=== PATIENT | male | born 1955 | race Caucasian/White ===

== ENCOUNTER → 2021-04-26 10:37 | Outpatient (BNVA) | payer MEDICARE, SELFPAY | PROVIDERS: PCP Family Medicine; Visit Provider Internal Medicine Pulmonary Disease | DX: J44.9 Chronic obstructive pulmonary disease, unspecified (principal); R91.8 Other nonspecific abnormal finding of lung field; Z87.891 Personal history of nicotine dependence | CPT/HCPCS: 99204 ==

== ENCOUNTER 2021-05-28 12:40 | Outpatient (CLI) | payer MEDICARE, SELFPAY ==
--- NOTE | 2021-05-28 13:00 | CT_ITS ---
WS: [id number] CT CHEST WITHOUT INTRAVENOUS CONTRAST HISTORY: 12 month f/u lung nodules TECHNIQUE: Contiguous 5 mm axial imaging performed on the thorax. Coronal and sagittal reformats are submitted. All CT scans at [facility] use at least one of these dose optimization techniques: automated exposure control; mA and/or kV adjustment per patient size (includes targeted exams where dose is matched to clinical indication); or iterative reconstruction. CONTRAST: None DLP: 922.56 mGy.cm COMPARISON: None available. Lungs and central airway: 5 mm slightly irregular nodule LEFT upper lobe. Additional 3 mm nodule RIGH T lower lobe, image 39 series 3. There are several adjacent small noncalcified nodules measuring 4 to 5 mm RIGHT middle lobe. Chronic emphysema. Pleura: Normal. No pleural effusion. Heart and pericardium: Normal size heart with no pericardial effusion. Mediastinum and ailyn: No mediastinum or hilar adenopathy. Vessels: Mild atherosclerosis aorta. Moderate coronary artery atherosclerotic plaque, greatest in the LEFT anterior descending artery. Pulmonary artery size is normal. Chest wall and lower neck: No soft tissue masses. Upper abdomen: Hepatic steatosis. Increased density layering within the dependent gallbladder. Low-at tenuation well-circumscribed mass upper pole RIGHT kidney measures 5.0 x 4.4 cm. No adrenal mass. Osseous structures: Healed rib fracture in the posterior LEFT thorax and lateral RIGHT thorax. CT/CT chest wo con [id number] IMPRESSION: 1. Bilateral subcentimeter pulmonary nodules as described above. No prior stud ies for comparison to evaluate for interval change. Recommend [address] follo w-up for continued documentation of stability. 2. Moderate coronary artery atherosclerotic plaque. 3. RIGHT renal cyst. 4. Cholelithiasis without acute cholecystitis.
== END 2021-05-28 12:41 | disposition home or self-care (01) ==
PROVIDERS: PCP Family Medicine; Visit Provider Internal Medicine Pulmonary Disease
DX: R91.8 Other nonspecific abnormal finding of lung field (principal); I25.10 Atherosclerotic heart disease of native coronary artery without angina pectoris; N28.1 Cyst of kidney, acquired; K80.20 Calculus of gallbladder without cholecystitis without obstruction
CPT/HCPCS: 71250

== ENCOUNTER 2021-07-25 12:41 | Outpatient (CLI) | payer MEDICARE, SELFPAY ==
--- NOTE | 2021-07-25 13:00 | XR_ITS ---
WS: [id number] KUB, AP view, 07/25/2021 Clinical Data: KIDNEY STONE Comparison: None. Findings: No abnormal intraabdominal masses are seen. There is no dilatated small bowel or evidence of obstruct ion. There is a 1.1 cm calcification overlying the midportion of the left kidney. XR/XR KUB [id number] Impression: Left renal calculus.
== END 2021-07-25 12:42 | disposition home or self-care (01) ==
PROVIDERS: PCP Family Medicine; Visit Provider Urology
DX: N20.0 Calculus of kidney (principal)
CPT/HCPCS: 74018; 81003; 99203

== ENCOUNTER 2021-08-28 13:27 | Outpatient (CLI) | payer MEDICARE, SELFPAY ==
--- NOTE | 2021-08-28 14:09 | PFTS_ITS ---
Date of Study:08/28/21 Date of Dictation: MECHANICS: Forced vital capacity (FVC) is normal. Forced expiratory volume in one second (FEV1) is normal. FEV1/FVC is reduced. FLOW VOLUME LOOP: Hesitation throughout the forced expiratory maneuver based on the graph I was given. This could have affected the FEV1 FVC ratio. LUNG VOLUMES: Total lung capacity (TLC) is normal. Residual volume (RV) is normal. DIFFUSING CAPACITY FOR CARBON MONOXIDE: Mild reduced. INTERPRETATION: The prebronchodilator spirometry is consistent with mild airflow obstruction. However, depending on the flow-volume loop, the FEV1 measurement could have been erroneously reduced. Lung volumes are normal. Gas exchange (DLCO) is mildly reduced. MTDD
== END 2021-08-28 13:28 | disposition home or self-care (01) ==
LOC: RT 13:27
PROVIDERS: PCP Family Medicine; Visit Provider Internal Medicine Pulmonary Disease
DX: J44.9 Chronic obstructive pulmonary disease, unspecified (principal)
CPT/HCPCS: 94010; 94618; 94726; 94729

== ENCOUNTER → 2022-04-17 12:19 | Outpatient (BNVA) | payer MEDICARE, SELFPAY | PROVIDERS: PCP Family Medicine; Visit Provider Internal Medicine Cardiovascular Disease | DX: R91.8 Other nonspecific abnormal finding of lung field (principal); Z87.891 Personal history of nicotine dependence; I48.91 Unspecified atrial fibrillation; Z98.890 Other specified postprocedural states; Z79.82 Long term (current) use of aspirin | CPT/HCPCS: 99213 ==

== ENCOUNTER → 2022-09-25 09:10 | Outpatient (BNVA) | payer MEDICARE, SELFPAY | PROVIDERS: PCP Family Medicine; Visit Provider Nurse Practitioner Family | DX: Z12.83 Encounter for screening for malignant neoplasm of skin (principal); Z85.828 Personal history of other malignant neoplasm of skin; L82.0 Inflamed seborrheic keratosis; D18.01 Hemangioma of skin and subcutaneous tissue; L57.0 Actinic keratosis; L57.8 Other skin changes due to chronic exposure to nonionizing radiation; L85.3 Xerosis cutis | CPT/HCPCS: 17000; 17003; 17110; 99203 ==

== ENCOUNTER 2023-01-10 07:09 | Outpatient (CLI) | payer MEDICARE, SELFPAY ==
--- NOTE | 2023-01-10 07:30 | CT_ITS ---
WS: [id number] CT CHEST TECHNIQUE: Contrast enhanced CT of the chest with coronal and sagittal reformatted images. CLINICAL INFORMATION: R91.8 - Other nonspecific abnormal finding of lung field COMPARISON: CT chest 05/28/2021 DLP: 626.[address] scans at [facility] use at least one of these dose optimization techniques: automated e xposure control; mA and/or kV adjustment per patient size (includes targeted exams where dose is matc hed to clinical indication); or iterative reconstruction. FINDINGS: Previously described noncalcified subcentimeter pulmonary nodules are stable in appearance compared to previous. Tiny noncalcified nodules LEFT upper lobe laterally, RIGHT lower lobe laterally , and 2 small nodules in the RIGHT middle lobe. A few calcified granulomas. No acute pulmonary infilt rates. Advanced chronic emphysematous changes. Normal caliber thoracic aorta. Aortic calcification. Proximal main pulmonary arteries are normal. Coronary calcification. No mediastinal or hilar lymphadenopathy. No axillary lymphadenopathy. Adrenal glands are normal. RIGHT renal cyst measuring 4.8 cm. Fatty atrophy of the pancreas. Cholelit hiasis. Small esophageal hiatal hernia. IMPRESSION: 1. Advanced chronic emphysematous changes. 2. A few tiny subcentimeter pulmonary nodules are stable. No new suspicious opacities. 3. Cholelithiasis. 4. RIGHT renal cyst measuring 4.8 cm.
[2023-01-10 07:40] LABS: Blood Urea Nitrogen 11 mg/dL (8-23)
[2023-01-10 07:41] LABS: Glomerular Filtration Rate 66.4 mL/min (90-130)
== END 2023-01-10 07:10 | disposition home or self-care (01) ==
LOC: RAD 07:10
PROVIDERS: PCP Nurse Practitioner; Visit Provider Nurse Practitioner
DX: R91.8 Other nonspecific abnormal finding of lung field (principal); N28.1 Cyst of kidney, acquired; R91.1 Solitary pulmonary nodule; K80.20 Calculus of gallbladder without cholecystitis without obstruction; J43.9 Emphysema, unspecified
CPT/HCPCS: 71260; 82565; 84520

== ENCOUNTER 2023-02-06 10:14 | Emergency (ER) | payer MEDICARE, SELFPAY ==
--- NOTE | 2023-02-06 10:21 | ECG_ITS ---
[facility] Test Date: 2023-02-06 Pat Name: Ajith Avila Department: Room: Gender: Male Assistant Department Manager: : 1955 Requested By: Krystle Palacio Order Number: [id number] Carlos MD: Andrew Lewis M.D. Measurements Intervals [place] Rate: 50 P: 61 NE: 206 QRS: -25 QRSD: 88 T: 22 QT: 408 QTc: 374 Interpretive Statements SINUS BRADYCARDIA POSSIBLE RIGHT VENTRICULAR CONDUCTION DELAY [RSR (QR) IN V1/V2] INFERIOR MYOCARDIAL INFARCTION , PROBABLY OLD [40+ ms Q WAVE AND/OR ST/T ABNORMALITY IN II/aVF] No previous ECG available for comparison Electronically Signed On 02-06-2023 15:12:08 ARCHITECTURAL ENGINEER by Andrew Lewis M.D. [id number] f
--- NOTE | 2023-02-06 10:21 | XRR_ITS ---
PROCEDURE INFORMATION: Exam: XR Chest Exam date and time: 02/06/2023 10:35 AM Age: 67 years old Clinical indication: Pain; Angina pectoris; Additional info: Cp TECHNIQUE: Imaging protocol: Radiologic exam of the chest. Views: 1 view. COMPARISON: CT chest w con* [id number] 01/10/2023 7:43 AM FINDINGS: Lungs: Lungs demonstrate minimal linear densities suggesting minimal scarring and/or atelectasis, otherwise clear. Pleural spaces: No pleural effusion identified. Heart/Mediastinum: The heart is not enlarged. The mediastinum is not enlarged. Bones/joints: No acute osseous abnormality identified. XR/XR chest 1V portable [id number] IMPRESSION: No acute cardiopulmonary abnormality identified other than evidence of minimal pulmonary scarring or atelectasis.
[2023-02-06 10:29] VITALS: BP 131/73; PULSE 51; TEMP 36.7; O2SAT 97; BMI 31.4
[2023-02-06 10:38] LABS: Basophils # 0.1 10^3/uL (0.0-0.1); Basophils % 0.7 %; Eosinophils # 0.2 10^3/uL (0.0-0.8); Eosinophils % 2.5 %; Hematocrit 49.7 % (37-53); Lymphocytes # 1.5 10^3/uL (0.8-4.8); Lymphocytes % 22.3 %; Mean Corpuscular Hemoglobin 30.3 pg (27-33); Mean Corpuscular Volume 94.7 fl (82-101); Mean Platelet Volume 9.5 fL (7.4-10.4); Monocytes # 0.5 10^3/uL (0.2-0.9); Monocytes % 7.3 %; Neutrophils # 4.51 10^3/uL (1.8-7.7); Neutrophils % 66.9 %; Nucleated Red Blood Cells % 0 %; Platelet Count 200 10^3/cmm (157-399); Red Blood Count 5.25 10^6/uL (3.85-5.65); Red Cell Distribution Width 13.1 % (12.1-15.1); White Blood Count 6.74 10^3/uL (3.29-11.43)
[2023-02-06 10:58] LABS: Alanine Aminotransferase 29 U/L (0-41); Albumin Level 4.2 g/dL (3.5-5.2); Alkaline Phosphatase 68 U/L (40-130); Anion Gap 14.1 (5-19); Aspartate Amino Transferase 20 U/L (0-40); Blood Urea Nitrogen 11 mg/dL (8-23); Calcium 9.1 mg/dL (8.5-10.5); Carbon Dioxide 25 mmol/L (22-29); Chloride 106 mmol/L (98-107); Creatinine Clr Calc Pharmacy 92.4696; Globulin 2.9 g/dL (1.3-4.6); Glomerular Filtration Rate 74.1 mL/min (90-130); Glucose 103 mg/dL (65-115); Osmolality Calculated 290 mOsm/kg (285-295); Potassium 5.1 mmol/L (3.5-5.1); Sodium 140 mmol/L (136-145); Total Bilirubin 0.7 mg/dL (0.15-1.2); Total Protein 7.1 g/dL (6.6-8.7)
[2023-02-06 10:59] LABS: Troponin(5th) Baseline < 6 ng/L (0-15)
--- NOTE | 2023-02-06 11:01 | ED_ITS ---
HPI - Arrhythmia/Palpitations 2 General: Chief Complaint: Arrhythmia/Palpitations Stated Complaint: chest pain, Time Seen by Provider: 02/06/23 10:50 History of Present Illness: Patient presents to the ER with complaints of his heart racing. Patient says he has history of A-fib with multiple ablations and is on sotalol twice daily. Patient says his heart started racing last night and getting irregular. Patient took a whole sotalol this morning set of a half a dose waited around for little bit and then decided to come to the ER when it was not settling down. By time he got here he went back into normal sinus rhythm. Patient says he normally has a low heart rate in the 50s. Patient denies any other complaints at this time. Review of Systems 2 General: Reports: 10 or more systems reviewed and unremarkable except in HPI and below PFSH ED 2 PFSH: Medical History COPD (chronic obstructive pulmonary disease) Atrial fibrillation History of cataract Surgical History History of radiofrequency ablation procedure for cardiac arrhythmia History of hernia surgery Hx of arthroscopic knee surgery History of lithotripsy Family History Father , at age 74 Cancer lung?/bone Mother , at age 86 Diverticula of colon Social History Smoking and tobacco/nicotine status: former use of tobacco/nicotine Quit status (tobacco/nicotine): has quit using Year quit tobacco: 2019 Former quit date comment: 1ppd x 37 years Alcohol intake: current Alcohol intake frequency: few times a month Household members: spouse Marital status: Current occupational status: employed Current occupation: Self Employed Physical Exam 2 Const: COMMON NORMALS: no acute distress, average body habitus, patient oriented x3, no limitations, healthy appearing, alert and well nourished HENMT: COMMON NORMALS: normocephalic, atraumatic, hearing grossly normal bilaterally, external ears normal, Normal external nose present, moist oral mucous membranes and oropharynx normal HEAD & SCALP: normocephalic and atraumatic NOSE: Normal external nose present EXTERNAL EAR: Yes external ears normal Neck/C-Spine: COMMON NORMALS: full ROM, no lymphadenopathy, supple, no meningeal signs, no JVD and Thyroid normal THYROID: Thyroid normal Chest: COMMONS NORMALS: normal inspection of the chest and normal palpation of entire chest wall Resp: COMMON NORMALS: normal respiratory effort, No retractions, No use of accessory muscles and clear to auscultation bilaterally AUSCULTATION: clear to auscultation bilaterally Cardio: COMMON NORMALS: no JVD, regular rate, regular rhythm, S1 normal heart sound present, S2 normal heart sound present, No gallops present (Cardio), No clicks present (Cardio), No murmurs present (Cardio) and No rub (Cardio) R ATE: regular rate RHYTHM: regular rhythm HEART SOUNDS: S1 normal heart sound present and S2 normal heart sound present GI: COMMON NORMALS: Normal to inspection, nondistended, normoactive bowel sounds present, Soft to palpation, non-tender, No hepatosplenomegaly present and no masses PALPATION: Yes Soft to palpation and Yes No hepatosplenomegaly present Neuro: COMMON NORMALS: patient oriented x3 SENSORIUM/ORIENTATION: Yes alert MENINGEAL SIGNS: Yes no meningeal signs Course 2 Vital Signs: Vital signs: Vital Signs Temperature 98.1 F 02/06/23 10:29 Pulse Rate 51 L 02/06/23 10:29 Respiratory Rate 18 02/06/23 13:02 Blood Pressure 131/73 02/06/23 10:29 Pulse Oximetry 97 02/06/23 10:29 Oxygen Delivery Me thod Room Air 02/06/23 10:29 MDM - Arrhythmia/Palpitations Medical Decision Making Patient had atrial fibrillation episode last night. Came in and had lab work and EKG and chest x-ray performed. All of which was essentially negative. Patient should continue the sotalol and follow-up with his PCP within next 7 to 10 days. Differential Diagnosis Likely palpitations, artial fibrillation and artial flutter; Unlikely anxiety, sinus tachycardia, ventricular premature beats, supraventricular tachycardia, ventricular tachycardia or WPW Medical Records I reviewed the patient's medical records. Lab Data I reviewed the patient's lab results. 02/06/23 10:31 02/06/23 10:31 Radiology Impressions Chest X-Ray 02/06/23 10:21 IMPRESSION: No acute cardiopulmonary abnormality identified other than evidence of minimal pulmonary scarring or atelectasis. Laboratory Results WBC 6.74 10^3/uL (3.29-11.43) 02/06/23 10:31 RBC 5.25 10^6/uL (3.85-5.65) 02/06/23 10:31 Hgb 15.90 g/dL (11.27-16.99) 02/06/23 10:31 Hct 49.7 % (37-53) 02/06/23 10:31 MCV 94.7 fl (82-101) 02/06/23 10:31 MCH 30.3 pg (27-33) 02/06/23 10:31 MCHC 32.0 g/dL (30-55) 02/06/23 10:31 RDW 13.1 % (12.1-15.1) 02/06/23 10:31 Plt Count 200 10^3/cmm (157-399) 02/06/23 10:31 MPV 9.5 fL (7.4-10.4) 02/06/23 10:31 Neut % (Auto) 66.9 % 02/06/23 10:31 Lymph % (Auto) 22.3 % 02/06/23 10:31 [place] % (Auto) 7.3 % 02/06/23 10:31 Eos % (Auto) 2.5 % 02/06/23 10:31 Baso % (Auto) 0.7 % 02/06/23 10:31 Neut # (Auto) 4.51 10^3/uL (1.8-7.7) 02/06/23 10:31 Lymph # (Auto) 1.5 10^3/uL (0.8-4.8) 02/06/23 10:31 [place] # (Auto) 0.5 10^3/uL (0.2-0.9) 02/06/23 10:31 Eos # (Auto) 0.2 10^3/uL (0.0-0.8) 02/06/23 10:31 Baso # (Auto) 0.1 10^3/uL (0.0-0.1) 02/06/23 10:31 Nucleated RBC % (auto) 0 % 02/06/23 10:31 Nucleated RBCs # 0.0 /100WBC 02/06/23 10:31 Sodium 140 mmol/L (136-145) 02/06/23 10:31 Potassium 5.1 mmol/L (3.5-5.1) 02/06/23 10:31 Chloride 106 mmol/L (98-107) 02/06/23 10:31 Carbon Dioxide 25 mmol/L (22-29) 02/06/23 10:31 Anion Gap 14.1 (5-19) 02/06/23 10:31 BUN 11 mg/dL (8-23) 02/06/23 10:31 Creatinine 1.0 mg/dL (0.7-1.2) 02/06/23 10:31 GFR Calculation 74.1 mL/min (90-130) L 02/06/23 10:31 Glucose 103 mg/dL (65-115) 02/06/23 10:31 Calculated Osmolality 290 mOsm/kg (285-295) 02/06/23 10:31 Calcium 9.1 mg/dL (8.5-10.5) 02/06/23 10:31 Magnesium 2.1 mg/dL (1.7-2.3) 02/06/23 10:31 Total Bilirubin 0.7 mg/dL (0.15-1.2) 02/06/23 10:31 AST 20 U/L (0-40) 02/06/23 10:31 ALT 29 U/L (0-41) 02/06/23 10:31 Alkaline Phosphatase 68 U/L (40-130) 02/06/23 10:31 Troponin T Baseline < 6 ng/L (0-15) 02/06/23 10:31 Troponin T 120 Minute 6.00 ng/L (0-15) 02/06/23 12:16 Delta Troponin T 0.08886 ABS# (0-10) 02/06/23 12:16 Total Protein 7.1 g/dL (6.6-8.7) 02/06/23 10:31 Albumin 4.2 g/dL (3.5-5.2) 02/06/23 10:31 Globulin 2.9 g/dL (1.3-4.6) 02/06/23 10:31 TSH 1.21 uIU/mL (0.27-4.20) 02/06/23 10:31 All radiology interpretation(s) finalized by discharge EKG Data EKG 1: I personally reviewed and interpreted this EKG as follows: EKG interpretation date: 02/06/23 EKG interpretation time: 10:21 Prior EKG tracings: not available for review Interpretation: EKG showed ventricular rate 50 bpm, DC interval 206, QRS duration 88, QTc of 382, sinus bradycardia, possible right ventricular conduction delay, Other EKG comments: Chest X-Ray 02/06/23 10:21 IMPRESSION: No acute cardiopulmonary abnormality identified other than evidence of minimal pulmonary scarring or atelectasis. Discharge Plan Discharge Patient Disposition: Home Clinical Impression: PAF (paroxysmal atrial fibrillation) Condition: Stable Prescriptions: No Action sotalol 120 mg tablet 60 mg PO BID aspirin 81 mg tablet,delayed release (DR/EC) 81 mg PO QPM rosuvastatin 10 mg tablet 10 mg PO QPM Discharge Orders: Discharge ED (Routine); Ordered 02/06/23 Ordered By: Will Donahue Referrals: Ni Chris FNP [Primary Care Provider] - 1 week Patient Instructions: A-fib (Atrial Fibrillation) (ED) Activity Restrictions/Additional Instructions: All of your workup in ER was negative for any acute changes. It appears you are had an episode of paroxysmal atrial fibrillation and now you are back into regular rhythm. Please continue your sotalol and please follow-up with your franchise sales manager and/or family practice physician within the next 7 to 10 days for further evaluation and treatment. Coding Level of Care Code ED Transaction Coordinator for Sae Cheung
[2023-02-06 11:20] LABS: Magnesium 2.1 mg/dL (1.7-2.3); Thyroid Stimulating Hormone 1.21 uIU/mL (0.27-4.20)
--- NOTE | 2023-02-06 12:21 | ECG_ITS ---
[facility] Test Date: 2023-02-06 Pat Name: Ajith Avila Department: Room: Gender: Male White Kid Buffer: : 1955 Requested By: Krystle Palacio Order Number: [id number] Carlos MD: Andrew Lewis M.D. Measurements Intervals [place] Rate: 50 P: 65 HI: 203 QRS: -33 QRSD: 80 T: 17 QT: 431 QTc: 395 Interpretive Statements SINUS BRADYCARDIA POSSIBLE RIGHT VENTRICULAR CONDUCTION DELAY [RSR (QR) IN V1/V2] INFERIOR MYOCARDIAL INFARCTION , PROBABLY OLD [40+ ms Q WAVE AND/OR ST/T ABNORMALITY IN II/aVF] No previous ECG available for comparison Electronically Signed On 02-06-2023 13:28:37 PAGE MAKEUP SYSTEM OPERATOR by Andrew Lewis M.D. [id number]
[2023-02-06 12:44] LABS: Troponin 5 2HR Delta 0.00001 ABS# (0-10)
[2023-02-06 13:02] VITALS: RESP 18
== END 2023-02-06 13:02 | disposition home or self-care (01) ==
PROVIDERS: Emergency Medicine; Emergency Provider Emergency Medicine; PCP Nurse Practitioner
DX: I48.0 Paroxysmal atrial fibrillation (principal); Z79.82 Long term (current) use of aspirin; J44.9 Chronic obstructive pulmonary disease, unspecified; Z87.891 Personal history of nicotine dependence
CPT/HCPCS: 36415; 71045; 80053; 83735; 84443; 84484; 85025; 93005; 99285

== ENCOUNTER → 2023-03-13 10:42 | Outpatient (BNVA) | payer MEDICARE, SELFPAY | PROVIDERS: PCP Nurse Practitioner; Visit Provider Nurse Practitioner | DX: R07.89 Other chest pain (principal) | CPT/HCPCS: 71046 ==

== ENCOUNTER → 2023-04-17 10:17 | Outpatient (BNVA) | payer MEDICARE, SELFPAY | PROVIDERS: PCP Nurse Practitioner; Visit Provider Emergency Medicine | DX: M25.511 Pain in right shoulder (principal) | CPT/HCPCS: 73030 ==

== ENCOUNTER → 2023-04-23 08:17 | Outpatient (BNVA) | payer MEDICARE, SELFPAY | PROVIDERS: PCP Nurse Practitioner; Visit Provider Nurse Practitioner Family | DX: L57.0 Actinic keratosis (principal); L82.0 Inflamed seborrheic keratosis; L57.8 Other skin changes due to chronic exposure to nonionizing radiation; L81.4 Other melanin hyperpigmentation; D22.5 Melanocytic nevi of trunk; Z85.828 Personal history of other malignant neoplasm of skin | CPT/HCPCS: 17000; 17110; 99213 ==

== ENCOUNTER 2023-06-21 09:38 | Emergency (ER) | payer MEDICARE, SELFPAY ==
[2023-06-21 09:55] VITALS: BP 138/87; PULSE 54; RESP 18; TEMP 36.7; O2SAT 94
--- NOTE | 2023-06-21 10:12 | XRR_ITS ---
PROCEDURE INFORMATION: Exam: XR Right Shoulder Exam date and time: 06/21/2023 10:26 AM Age: 67 years old Clinical indication: Pain; Upper arm; Right; Additional info: Pain laterally TECHNIQUE: Imaging protocol: Radiologic exam of the right shoulder. Views: 2 or more views. COMPARISON: CR XR chest 2V* [id number] 03/13/2023 10:53 AM FINDINGS: Bones/joints: Moderate arthritis right glenohumeral articulation. Slight superior subluxation of the right humeral head narrowing the acromial humeral space. This is often associated with rotator cuff injury. Otherwise, unremarkable. Soft tissues: Normal. XR/XR shoulder RT min 2V* [id number] IMPRESSION: 1. Possible right rotator cuff injury. Consider MRI for this. 2. Moderate arthritis right glenohumeral articulation.
--- NOTE | 2023-06-21 10:13 | ED_ITS ---
HPI - Extremity Problem General: Chief complaint: Extremity Injury, Upper Stated complaint: right shoulder pain Time Seen by Provider: 06/21/23 09:54 Source: patient History of Present Illness: Patient presents to the emergency department because of persistent right shoulder pain. He had a fall approximately 2 and half months ago where he tripped while going down stairs landed on his left trunk and also bounced against his right shoulder. No head injury neck injury etc. He has been seen subsequently at primary care clinic because of persistent right shoulder pain. Received a steroid lidocaine injection at right shoulder couple months ago which relieved his symptoms for several hours. He states it hurts to raise his arm up and it aches all the time he cannot get good sleep. He is not using a sling. When questioned he states he had a shoulder injury many years ago and was told he probably had a small rotator cuff tear. He states it did not really bother him too much but he could not do any overhead throwing but could continue to play golf etc. He is right-handed. He denies any other pain or discomfort at this time. Location: right and upper extremity Associated symptoms: Deny chest pain, fever(s) or rash Review of Systems Const: Denies: fever(s) or chills Eyes: Denies: change in vision Card: Denies: chest pain, palpitations or irregular heart rhythm Resp: Denies: dyspnea, productive cough or non-productive cough Musc: Reports: extremity pain; Denies: neck pain or back pain Skin/Breast: Denies: rash or pruritus Neuro: Denies: numbness in extremities or weakness in extremities [facility] ED PFSH: Medical History Tendinopathy of right shoulder COPD (chronic obstructive pulmonary disease) Atrial fibrillation History of cataract Surgical History History of radiofrequency ablation procedure for cardiac arrhythmia History of hernia surgery Hx of arthroscopic knee surgery History of lithotripsy Family History Father , at age 74 Cancer lung?/bone Mother , at age 86 Diverticula of colon Social History Smoking and tobacco/nicotine status: former use of tobacco/nicotine Quit status (tobacco/nicotine): has quit using Year quit tobacco: 2019 Former quit date comment: 1ppd x 37 years Alcohol intake: current Alcohol intake frequency: few times a month Household members: spouse Marital status: Current occupational status: employed Current occupation: Self Employed Physical Exam Narrative: EXAM NARRATIVE: Patient is alert in no acute distress answers questions appropriately. Const: COMMON NORMALS: no acute distress, average body habitus and patient oriented x3 GENERAL APPEARANCE: cooperative and comfortable HENMT: COMMON NORMALS: normocephalic HEAD & SCALP: normocephalic Neck/C-Spine: COMMON NORMALS: full ROM, no lymphadenopathy and supple CERVICAL SPINE: Yes cervical ROM normal, No Cervical spine tenderness, No Paracervical spasm and No Trapezius muscle tenderness Resp: COMMON NORMALS: normal respiratory effort Cardio: COMMON NORMALS: Peripheral pulses 2+ throughout PERIPHERAL PULSES: Peripheral pulses 2+ throughout : COMMON NORMALS: Yes no CVA tenderness BLADDER/KIDNEY EXAM: Yes no CVA tenderness Back/Pelvis: COMMON NORMALS: no CVA tenderness, thoracic and lumbar spine normal to inspection and no thoracic nor lumbar tenderness Extremity: COMMON NORMALS: normal to inspection and capillary refill normal NARRATIVE EXTREMITY EXAM: Examination of the right shoulder reveals tenderness along the anterior portion of the right shoulder joint as well as minimal tenderness at the posterior lateral quadrant. No superior trapezius tenderness. Held in internal rotation and flexion at the elbow provides most relief. Flexion against resistance reproduces symptoms anteriorly also internal and external rotation of shoulder joint reproduces symptoms. Abduction past approximately 40 degrees reproduces symptoms and external rotation is very uncomfortable. No distal range of motion abnormalities noted. No distal weakness neurologic findings etc. Neuro: COMMON NORMALS: patient oriented x3, moves all extremities, no focal motor deficits and no sensory deficits noted Course Reevaluation(s): Reevaluation #1: Reviewed x-ray findings and plan of care with the patient. The patient will need analgesics and steroids however I will not inject that LILY or joint area etc. today as he has had a recent steroid injection. Informed him that he will need an MRI orthopedic consultation which apparently is already scheduled and follow-up. Time: 11:11 Vital Signs: Vital signs: Vital Signs Temperature 98.0 F 06/21/23 09:55 Pulse Rate 54 L 06/21/23 09:55 Respiratory Rate 18 06/21/23 09:55 Blood Pressure 138/87 06/21/23 09:55 Pulse Oximetry 94 06/21/23 09:55 Oxygen Delivery Me thod Room Air 06/21/23 09:55 MDM - Extremity (Nontraumatic) Medical Decision Making This patient made his way to the emergency department because of persistent right shoulder pain. He was told by clinic that he that he should come to the emergency department should he have continued pain. He apparently had a fall approximately 2 and 3:30 months ago landing both on his left trunk and right shoulder with persistent right shoulder pain. There is a suggestion of a history of a prior very remote rotator cuff tear. He is right-handed. Clinical examination reveals restriction in abduction, external rotation, flexion at the biceps. Plain films did not reveal fracture but revealed degenerative changes as well as findings suggestive of rotator cuff tear. We will continue with that shoulder at rest, analgesics and steroids and having follow-up with orthopedics as scheduled. Lab Data I reviewed the patient's lab results. Radiology Impressions Shoulder X-Ray 06/21/23 10:12 IMPRESSION: 1. Possible right rotator cuff injury. Consider MRI for this. 2. Moderate arthritis right glenohumeral articulation. All radiology interpretation(s) finalized by discharge Discharge Plan Discharge Patient Disposition: Home Clinical Impression: Chronic pain in right shoulder, Rotator cuff injury Condition: Stable Prescriptions: New prednisone 20 mg tablet 20 mg PO BID Qty: 14 0RF hydrocodone-acetaminophen 7.5-325 mg tablet 1 tab PO BID PRN (Reason: pain) Qty: 14 0RF No Action sotalol 120 mg tablet 60 mg PO BID rosuvastatin 10 mg tablet 10 mg PO QPM naproxen 500 mg tablet 500 mg PO BID PRN (Reason: pain) Qty: 60 1RF Discharge Orders: Discharge ED (Routine); Ordered 06/21/23 Ordered By: Juliano Mireles Referrals: Ni Chris FNP [Primary Care Provider] - Patient Instructions: Opioid Safety, Pain Management Activity Restrictions/Additional Instructions: As we discussed you have a rotator cuff tear of the right shoulder. We have prescribed an anti-inflammatory medicine as well as a pain medicine to use intermittently to help control your symptoms. We also recommend using a sling to help rest the right shoulder. You should follow-up with orthopedics as scheduled. If you have any new or worsening symptoms you are welcome to return to the emergency department. Coding Level of Care Code ED Shim Plug Cutter for Sae Cheung
== END 2023-06-21 11:32 | disposition home or self-care (01) ==
PROVIDERS: Emergency Provider Emergency Medicine; PCP Nurse Practitioner
DX: G89.29 Other chronic pain (principal); M25.511 Pain in right shoulder; S46.001A Unspecified injury of muscle(s) and tendon(s) of the rotator cuff of right shoulder, initial encounter; J44.9 Chronic obstructive pulmonary disease, unspecified; Z87.891 Personal history of nicotine dependence; W10.8XXA Fall (on) (from) other stairs and steps, initial encounter
CPT/HCPCS: 73030; 99283

== ENCOUNTER → 2024-01-22 08:55 | Outpatient (BNVA) | payer MEDICARE, SELFPAY | PROVIDERS: PCP Nurse Practitioner; Visit Provider Nurse Practitioner Family | DX: D36.14 Benign neoplasm of peripheral nerves and autonomic nervous system of thorax (principal); L57.8 Other skin changes due to chronic exposure to nonionizing radiation; L81.4 Other melanin hyperpigmentation; D22.5 Melanocytic nevi of trunk; L82.0 Inflamed seborrheic keratosis; Z85.828 Personal history of other malignant neoplasm of skin; L98.8 Other specified disorders of the skin and subcutaneous tissue; L53.8 Other specified erythematous conditions; D48.5 Neoplasm of uncertain behavior of skin | CPT/HCPCS: 11102; 17000; 17110; 99213 ==

== ENCOUNTER → 2024-03-17 11:29 | Outpatient (BNVA) | payer MEDICARE, SELFPAY | PROVIDERS: PCP Nurse Practitioner; Visit Provider Nurse Practitioner | DX: I48.91 Unspecified atrial fibrillation (principal); E78.5 Hyperlipidemia, unspecified | CPT/HCPCS: 80053; 80061; 84443; 85025 ==

== ENCOUNTER 2024-04-01 10:08 | Outpatient (RCR) | payer MEDICARE, SELFPAY | END 2024-04-09 23:59 | disposition home or self-care (01) | LOC: MPT 10:08 | PROVIDERS: PCP Nurse Practitioner; Visit Provider Nurse Practitioner Family | DX: Z47.89 Encounter for other orthopedic aftercare (principal) | CPT/HCPCS: 97110; 97140; 97162 ==

== ENCOUNTER 2024-04-02 07:28 | Emergency (ER) | payer MEDICARE, SELFPAY ==
[2024-04-02 07:45] VITALS: BP 119/84; PULSE 65; RESP 14; TEMP 36.6; O2SAT 95; BMI 31.3
--- NOTE | 2024-04-02 07:59 | W.ED.BACK ---
HPI - Back Pain/Injury General: Chief Complaint: Back Pain/Injury Stated Complaint: severe pain l side abd Time Seen by Provider: 04/02/24 07:41 History of Present Illness: 68-year-old male presents to the emergency room with left flank pain radiating down to his groin. Patient states feels like kidney stones that he has had in the past. Denies any hematuria dysuria urgency or frequency. Pain has been intermittent for last couple days and now overnight gotten much worse. Associated symptoms: Reports abdominal pain; Deny chills, dysuria, fever(s) or urinary urgency Related Data Home Medications ?Medication ?Instructions ?Recorded ?Confirmed sotalol 120 mg tablet 60 mg PO BID 04/26/21 04/02/24 Previous Rx's ?Medication ?Instructions ?Recorded naproxen 500 mg tablet 500 mg PO BID PRN pain #60 tabs 11/11/23 semaglutide 0.25 mg or 0.5 mg (2 0.25 mg (0.368 mL) SUBCUT Q7D #3 mL 03/17/24 mg/3 mL) subcutaneous pen injector (Ozempic) ciprofloxacin HCl 500 mg tablet 500 mg PO BID #14 tabs 04/02/24 (Cipro) hydrocodone 5 mg-acetaminophen 325 1 tab PO Q6H PRN pain #20 tabs 04/02/24 mg tablet promethazine 25 mg tablet 25 mg PO Q6H PRN nausea and 04/02/24 vomiting #20 tabs tamsulosin 0.4 mg capsule 0.4 mg PO DAILY #10 caps 04/02/24 Allergies Allergy/AdvReac Type Severity Reaction Status Date / Time No Known Allergies Allergy Verified 04/02/24 07:50 Review of Systems Const: Denies: fever(s) or chills Card: Denies: chest pain Resp: Denies: dyspnea GI: Reports: abdominal pain : Denies: dysuria, urinary frequency or urinary urgency Musc: Denies: neck pain or back pain Skin/Breast: Denies: rash PFSH ED PFSH: Medical History Tendinopathy of right shoulder COPD (chronic obstructive pulmonary disease) Atrial fibrillation History of cataract Surgical History History of radiofrequency ablation procedure for cardiac arrhythmia History of hernia surgery Hx of arthroscopic knee surgery History of lithotripsy Family History Father , at age 74 Cancer lung?/bone Mother , at age 86 Diverticula of colon Social History Smoking and tobacco/nicotine status: former use of tobacco/nicotine Quit status (tobacco/nicotine): has quit using Year quit tobacco: 2019 Former quit date comment: 1ppd x 37 years Alcohol intake: current Alcohol intake frequency: few times a month Household members: spouse Marital status: Current occupational status: employed Current occupation: Self Employed Physical Exam Const: GENERAL APPEARANCE: cooperative ORIENTATION/CONSCIOUSNESS: Yes awake, Yes oriented to person, Yes oriented to place and Yes oriented to time HENMT: COMMON NORMALS: normocephalic, atraumatic and hearing grossly normal bilaterally HEAD & SCALP: normocephalic and atraumatic Resp: COMMON NORMALS: normal respiratory effort, No retractions, No use of accessory muscles and clear to auscultation bilaterally AUSCULTATION: clear to auscultation bilaterally Cardio: COMMON NORMALS: regular rate, regular rhythm and No murmurs present (Cardio) RATE: regular rate RHYTHM: regular rhythm GI: COMMON NORMALS: Soft to palpation and No hepatosplenomegaly present AUSCULTATION: Yes normoactive bowel sounds PALPATION: Yes Soft to palpation, No Tenderness to palpation present (GI), No Guarding due to palpation present (GI) and Yes No hepatosplenomegaly present Extremity: COMMON NORMALS: normal to inspection, capillary refill normal, no clubbing, cyanosis or edema, no calf tenderness and no pedal edema Neuro: SENSORIUM/ORIENTATION: Yes oriented to person, Yes oriented to place and Yes oriented to time Skin: COMMON NORMALS: no rashes or lesions noted GENERAL SKIN EXAM: no rashes or lesions noted Course Vital Signs: Vital signs: Vital Signs Temperature 97.9 F 04/02/24 07:45 Pulse Rate 65 04/02/24 08:48 Respiratory Rate 17 04/02/24 08:46 Blood Pressure 119/82 04/02/24 08:48 Pulse Oximetry 95 04/02/24 08:48 Oxygen Delivery Me thod Room Air 04/02/24 07:45 MDM - Back Pain/Injury Medical Decision Making 4 mm mid ureteral calculi. Patient does have a mild bump in his creatinine increased fluids. Treat with tamsulosin pain and nausea medication as needed. Of a few white blood cells oh and total white count is normal. Will cover with oral antibiotics. If develops fever or pain uncontrolled return. Encourage patient to contact his urologist today they can make arrangements for further follow-up. Strain urine to collect stone Medical Records I reviewed the patient's medical records. Labs I reviewed the patient's lab results. 04/02/24 08:22 04/02/24 08:22 Radiology Impressions Abdomen/Pelvis CT 04/02/24 08:14 IMPRESSION: 1. Mid LEFT ureteral calcification measures 4 mm causing a mild more proximal hydroureteronephrosis. 2. No right-sided hydronephrosis. 3. Bladder calcification measures 4.7 mm. New since 2021. There does not appear to be a recently passed calcification from the RIGHT ureter. 4. Cholelithiasis without acute cholecystitis. 5. Simple cyst upper pole RIGHT kidney. Laboratory Results WBC 11.07 10^3/uL (3.29-11.43) 04/02/24 08:22 RBC 5.34 10^6/uL (3.85-5.65) 04/02/24 08:22 Hgb 16.10 g/dL (11.27-16.99) 04/02/24 08:22 Hct 50.5 % (37-53) 04/02/24 08:22 MCV 94.6 fl (82-101) 04/02/24 08:22 MCH 30.1 pg (27-33) 04/02/24 08:22 MCHC 31.9 g/dL (30-55) 04/02/24 08:22 RDW 13.2 % (12.1-15.1) 04/02/24 08:22 Plt Count 213 10^3/cmm (157-399) 04/02/24 08:22 MPV 9.9 fL (7.4-10.4) 04/02/24 08:22 Neut % (Auto) 83.7 % 04/02/24 08:22 Lymph % (Auto) 8.3 % 04/02/24 08:22 [place] % (Auto) 6.5 % 04/02/24 08:22 Eos % (Auto) 0.8 % 04/02/24 08:22 Baso % (Auto) 0.3 % 04/02/24 08:22 Neut # (Auto) 9.27 10^3/uL (1.8-7.7) H 04/02/24 08:22 Lymph # (Auto) 0.9 10^3/uL (0.8-4.8) 04/02/24 08:22 [place] # (Auto) 0.7 10^3/uL (0.2-0.9) 04/02/24 08:22 Eos # (Auto) 0.1 10^3/uL (0.0-0.8) 04/02/24 08:22 Baso # (Auto) 0.0 10^3/uL (0.0-0.1) 04/02/24 08:22 Nucleated RBC % (auto) 0 % 04/02/24 08: Nucleated RBCs # 0.0 /100WBC 04/02/24 08:22 Sodium 136 mmol/L (136-145) 04/02/24 08:22 Potassium 4.6 mmol/L (3.5-5.1) 04/02/24 08:22 Chloride 101 mmol/L (98-107) 04/02/24 08:22 Carbon Dioxide 24 mmol/L (22-29) 04/02/24 08:22 Anion Gap 15.6 (5-19) 04/02/24 08:22 BUN 20 mg/dL (8-23) 04/02/24 08:22 Creatinine 1.4 mg/dL (0.7-1.2) H 04/02/24 08:22 GFR Calculation 50.1 mL/min (90-130) L 04/02/24 08:22 Glucose 109 mg/dL (65-115) 04/02/24 08:22 Calculated Osmolality 285 mOsm/kg (285-295) 04/02/24 08:22 Calcium 9.5 mg/dL (8.5-10.5) 04/02/24 08:22 Total Bilirubin 1.2 mg/dL (0.15-1.2) 04/02/24 08:22 AST 22 U/L (0-40) 04/02/24 08:22 ALT 26 U/L (0-41) 04/02/24 08:22 Alkaline Phosphatase 80 U/L (40-130) 04/02/24 08:22 Total Protein 7.4 g/dL (6.6-8.7) 04/02/24 08:22 Albumin 4.3 g/dL (3.5-5.2) 04/02/24 08:22 Globulin 3.1 g/dL (1.3-4.6) 04/02/24 08:22 Lipase 38 U/L (13-60) 04/02/24 08:22 Urine Color Yellow (Yellow) 04/02/24 09:15 Urine Appearance Clear (CLEAR) 04/02/24 09:15 Urine pH 5.5 (5-7) 04/02/24 09:15 Ur Specific [place] 1.025 (1.005-1.030) 04/02/24 09:15 Urine Protein Trace (Negative) A 04/02/24 09:15 Urine Glucose (UA) Negative (Normal) 04/02/24 09:15 Urine Ketones 1+ (Negative) H 04/02/24 09:15 Urine Blood 2+ (Negative) A 04/02/24 09:15 Urine Nitrate Negative (Negative) 04/02/24 09:15 Urine Bilirubin Negative (Negative) 04/02/24 09:15 Urine Urobilinogen 1.0 mg/dL (Negative) 04/02/24 09:15 Ur Leukocyte Esterase Negative (Negative) 04/02/24 09:15 Urine RBC 10-15 /hpf (0-2) H 04/02/24 09:15 Urine WBC 5-10 /hpf (0-5) H 04/02/24 09:15 Ur Squamous Epith Cells 0-4 /hpf (0-5) H 04/02/24 09:15 Amorphous Sediment Not Reportable 04/02/24 09:15 Urine Bacteria Trace /hpf (NONE) 04/02/24 09:15 Hyaline Casts Rare /lpf 04/02/24 09:15 All radiology interpretation(s) finalized by discharge Discharge Plan Discharge Patient Disposition: Home Clinical Impression: Left nephrolithiasis Condition: Stable Prescriptions: New hydrocodone-acetaminophen 5-325 mg tablet 1 tab PO Q6H PRN (Reason: pain) Qty: 20 0RF promethazine 25 mg tablet 25 mg PO Q6H PRN (Reason: nausea and vomiting) Qty: 20 0RF tamsulosin 0.4 mg capsule 0.4 mg PO DAILY Qty: 10 0RF ciprofloxacin HCl [Cipro] 500 mg tablet 500 mg PO BID Qty: 14 0RF No Action sotalol 120 mg tablet 60 mg PO BID naproxen 500 mg tablet 500 mg PO BID PRN (Reason: pain) Qty: 60 1RF Ozempic 0.25 mg or 0.5 mg (2 mg/3 mL) pen injector 0.25 mg SUBCUT Q7D Qty: 3 0RF Discharge Orders: Discharge ED (Routine); Ordered 04/02/24 Ordered By: Franko Conley Referrals: Ni Chris FNP [Primary Care Provider] - Discharge Diet: Usual diet Discharge Activity: Resume usual activity Patient Instructions: Kidney Stones (ED), How to Strain Your Urine (ED), Opioid Safety, Pain Management Activity Restrictions/Additional Instructions: Thank you for choosing [facility] for your healthcare needs today. It is very important that you follow up as instructed or that you return to the Emergency Department should you have concerns or if your condition changes or worsens in any way. You were seen in the emergency room with complaints of left flank pain. CT shows you have a 4 mm kidney stone. There were some signs of a possible infection in the bladder so we will give you antibiotics. Additionally gave you tamsulosin which helps the stone pass a little quicker. You are also given pain and nausea medicines. You should contact your urologist to arrange for outpatient follow-up for regarding this kidney stone. If your pain becomes uncontrolled return to the emergency room Print Language: Bulgarian Coding Level of Care Code ED Chief Passenger Ship Steward/Stewardess for Sae Cheung
--- NOTE | 2024-04-02 08:14 | CT_ITS ---
WS: [id number] CT ABDOMEN AND PELVIS NONCONTRAST HISTORY: flank pain, LEFT TECHNIQUE: Imaging performed through the abdomen and pelvis. Coronal and sagittal reformats are submitted. All CT scans at [facility] use at least one of these dose optimization techniques: automated exposure control; mA and/or kV adjustment per patient size (includes targeted exams where dose is matched to clinical indication); or iterative reconstruction. DLP: 1029.20 mGy.cm COMPARISON: 06/05/2021 Lower thorax: Lung bases are clear. No cardiomegaly. Small hiatal hernia. Liver: Normal size liver. No mass or bile duct dilatation. Gallbladder: Cholelithiasis without acute cholecystitis. Pancreas: Normal size and attenuation. Normal pancreatic duct. No pancreatitis or mass. Spleen: Normal. Adrenal glands: Normal. No mass. Right kidney: Normal size RIGHT kidney with very mild perinephric stranding. Simple cyst upper pole 4.9 x 4.0 x 4.7 cm. Nonobstructing 2 mm calcification in the central renal pelvis. No hydronephrosis or hydroureter. Left kidney: Normal size kidney with moderate perinephric stranding. Mild hydronephrosis and proximal hydroureter. In the mid LEFT ureter is a 4 mm calcification resulting in mild obstruction. The distal ureter is normal caliber. Aorta: Mild atherosclerosis abdominal aorta with no aneurysm. Atherosclerosis and ectasia continues into the iliac arteries. No free fluid, intraperitoneal air or significant lymphadenopathy. GI tract: Nondistended stomach. No small bowel obstruction. Mild diffuse constipation. No appendicitis. Abdominal wall: Negative. No hernia. Pelvis: Urinary bladder is well distended. 4.7 mm calcification in the lumen of the urinary bladder to the RIGHT of midline. Calcification was not present on 06/05/2021. Prostate gland is mildly enlarged with central calcification encroaching into the bladder. Osseous structures: Unremarkable. CT/CT kidney stone [id number] IMPRESSION: 1. Mid LEFT ureteral calcification measures 4 mm causing a mild more proximal hydroureteronephrosis. 2. No right-sided hydronephrosis. 3. Bladder calcification measures 4.7 mm. New since 2021. There does not appea r to be a recently passed calcification from the RIGHT ureter. 4. Cholelithiasis without acute cholecystitis. 5. Simple cyst upper pole RIGHT kidney.
[2024-04-02 08:28] LABS: Basophils % 0.3 %; Eosinophils # 0.1 10^3/uL (0.0-0.8); Eosinophils % 0.8 %; Hematocrit 50.5 % (37-53); Lymphocytes # 0.9 10^3/uL (0.8-4.8); Lymphocytes % 8.3 %; Mean Corpuscular HGB Conc 31.9 g/dL (30-55); Mean Corpuscular Hemoglobin 30.1 pg (27-33); Mean Corpuscular Volume 94.6 fl (82-101); Mean Platelet Volume 9.9 fL (7.4-10.4); Monocytes # 0.7 10^3/uL (0.2-0.9); Monocytes % 6.5 %; Neutrophils # 9.27 10^3/uL (1.8-7.7); Neutrophils % 83.7 %; Nucleated Red Blood Cells % 0 %; Platelet Count 213 10^3/cmm (157-399); Red Blood Count 5.34 10^6/uL (3.85-5.65); Red Cell Distribution Width 13.2 % (12.1-15.1); White Blood Count 11.07 10^3/uL (3.29-11.43)
[2024-04-02 08:46] VITALS: RESP 17; O2SAT 97
[2024-04-02] MEDS: ondansetron 2 mg/ML SDV 2 mL 4 MG IVP (08:46)
[2024-04-02] MEDS: morphine 4 mg/mL SDV 1 mL IVP (08:46)
[2024-04-02 08:48] VITALS: BP 119/82; PULSE 65; O2SAT 95
[2024-04-02 08:50] LABS: Alanine Aminotransferase 26 U/L (0-41); Albumin Level 4.3 g/dL (3.5-5.2); Alkaline Phosphatase 80 U/L (40-130); Anion Gap 15.6 (5-19); Aspartate Amino Transferase 22 U/L (0-40); Blood Urea Nitrogen 20 mg/dL (8-23); Calcium 9.5 mg/dL (8.5-10.5); Carbon Dioxide 24 mmol/L (22-29); Chloride 101 mmol/L (98-107); Creatinine Clr Calc Pharmacy 64.9936; Globulin 3.1 g/dL (1.3-4.6); Glomerular Filtration Rate 50.1 mL/min (90-130); Glucose 109 mg/dL (65-115); Lipase 38 U/L (13-60); Osmolality Calculated 285 mOsm/kg (285-295); Potassium 4.6 mmol/L (3.5-5.1); Sodium 136 mmol/L (136-145); Total Bilirubin 1.2 mg/dL (0.15-1.2); Total Protein 7.4 g/dL (6.6-8.7)
[2024-04-02 09:29] LABS: Bilirubin Urine Negative (Negative); Blood Urine 2+ (Negative); Glucose Urine UA Negative (Normal); Ketones Urine 1+ (Negative); Leukocyte Esterase Urine Negative (Negative); Nitrate Urine Negative (Negative); Protein Urine Trace (Negative); Specific Gravity, Urine 1.025 (1.005-1.030); Urine Appearance Clear (CLEAR); Urine Color Yellow (Yellow); pH Urine 5.5 (5-7)
[2024-04-02 10:08] LABS: Add Urine Microscopic? YES; Bacteria Urine TRACE /hpf; Hyaline Casts Urine RARE /lpf; Squamous Epithelial Cell Urine 0-4 /hpf (0-5); UA Manual Slide Review YES; UA Slide Review UA Slide Review Perf
[2024-04-02 10:09] LABS: Add Urine Culture? Yes
== END 2024-04-02 10:57 | disposition home or self-care (01) ==
PROVIDERS: Emergency Provider Family Medicine; PCP Nurse Practitioner
DX: N20.0 Calculus of kidney (principal); Z87.891 Personal history of nicotine dependence; J44.9 Chronic obstructive pulmonary disease, unspecified
CPT/HCPCS: 36415; 74176; 80053; 81001; 83690; 85025; 87086; 96374; 96375; 99285; J2270; J2405

== ENCOUNTER 2024-04-07 08:08 | Outpatient (CLI) | payer MEDICARE, SELFPAY ==
--- NOTE | 2024-04-07 08:00 | CT_ITS ---
WS: [id number] CT chest w con* [id number] HISTORY: R91.8 - Other nonspecific abnormal finding of lung field, follow-up lung nodules. TECHNIQUE: Axial imaging performed through the thorax. Coronal and sagittal reformats are submitted. All CT scans at [facility] use at least one of these dose optimization techniques: automated exposure control; mA and/or kV adjustment per patient size (includes targeted exams where dose is matched to clinical indication); or iterative reconstruction. CONTRAST: Omnipaque 350; 100 mL IV. DLP: 543.03 mGy.cm COMPARISON: 01/10/2023, 05/28/2021 Lungs and central airway: Advanced centrilobular emphysema. Linear scar or atelectasis at the lingula. RIGHT middle lobe 3 mm nodules are unchanged. Tiny nodule LEFT upper lobe is also stable. No new masses or nodules are identified. There are no enlarging nodules. Pleura: Normal. No pleural effusion. Heart and pericardium: Normal size heart with no pericardial effusion. Mediastinum and ailyn: No mediastinum or hilar adenopathy. Vessels: Normal size aortic and pulmonary artery. No coronary artery calcifications. Chest wall and lower neck: No soft tissue masses. Upper abdomen: Cholelithiasis layering within the gallbladder. No evidence for acute cholecystitis. RIGHT renal cyst 4.9 cm in the superior pole. Small hiatal hernia. Osseous structures: No destructive process. CT/CT chest w con* [id number] IMPRESSION: 1. Stable, subcentimeter pulmonary nodules. No further imaging surveillance ne cessary for these nodules. Consider yearly lung screening CT. 2. Advanced centrilobular emphysema. 3. Small hiatal hernia. 4. Cholelithiasis without acute cholecystitis.
[2024-04-07] MEDS: iohexol 350 mg/mL 500 mL Btl (per mL) IV (08:22)
== END 2024-04-07 08:09 | disposition home or self-care (01) ==
PROVIDERS: PCP Nurse Practitioner; Visit Provider Nurse Practitioner
DX: R91.8 Other nonspecific abnormal finding of lung field (principal); Z87.891 Personal history of nicotine dependence; J43.2 Centrilobular emphysema; K44.9 Diaphragmatic hernia without obstruction or gangrene; K80.20 Calculus of gallbladder without cholecystitis without obstruction; N28.1 Cyst of kidney, acquired
CPT/HCPCS: 71260

== ENCOUNTER 2024-04-10 06:00 | Outpatient (RCR) | payer MEDICARE, SELFPAY | END 2024-05-10 23:59 | disposition home or self-care (01) | LOC: MPT 06:00 | PROVIDERS: PCP Nurse Practitioner; Visit Provider Nurse Practitioner Family | DX: Z47.89 Encounter for other orthopedic aftercare (principal) | CPT/HCPCS: 97110; 97140 ==

== ENCOUNTER → 2024-04-21 08:32 | Outpatient (BNVA) | payer MEDICARE, SELFPAY | PROVIDERS: PCP Nurse Practitioner; Visit Provider Nurse Practitioner Family | DX: D36.11 Benign neoplasm of peripheral nerves and autonomic nervous system of face, head, and neck (principal); L57.8 Other skin changes due to chronic exposure to nonionizing radiation; L81.4 Other melanin hyperpigmentation; L82.0 Inflamed seborrheic keratosis | CPT/HCPCS: 17000; 17110; 99213 ==

== ENCOUNTER → 2024-07-19 14:35 | Outpatient (BNVA) | payer MEDICARE, SELFPAY | PROVIDERS: PCP Nurse Practitioner; Visit Provider Internal Medicine | DX: R07.9 Chest pain, unspecified (principal) | CPT/HCPCS: 93005; 99213 ==

== ENCOUNTER → 2024-11-15 10:12 | Outpatient (BNVA) | payer MEDICARE, SELFPAY | PROVIDERS: PCP Nurse Practitioner; Visit Provider Nurse Practitioner | DX: M54.50 Low back pain, unspecified (principal); N39.0 Urinary tract infection, site not specified | CPT/HCPCS: 81000; 87086 ==

== ENCOUNTER → 2024-12-01 09:12 | Outpatient (BNVA) | payer MEDICARE, SELFPAY | PROVIDERS: PCP Nurse Practitioner; Visit Provider Nurse Practitioner | DX: N39.0 Urinary tract infection, site not specified (principal) | CPT/HCPCS: 81000; 87086 ==